=== PATIENT | female | born 1995 | race Native Hawaiian/Other Pacific Islander ===

== ENCOUNTER 2016-07-24 17:56 | Emergency (ER) | payer OTHER ==
[~2016-07-24] VITALS: Ht 167.6 cm; Wt 102.1 kg
[2016-07-24] MEDS ORDERED: WAL-PROFEN200 M1 OR (18:18)
[2016-07-24 19:22] LABS: PLATELET COUNT 333 K/uL (152-353)
[2016-07-24 19:37] LABS: POTASSIUM 3.7 mmol/L (3.6-5.2); SODIUM 140 mmol/L (136-145)
[2016-07-24 20:12] VITALS: BP 112/82; TEMP 99.1
== END 2016-07-24 20:12 | disposition home or self-care (01) ==
LOC: ED 17:56
PROVIDERS: Specialist
DX: R42 Dizziness and giddiness (principal)
CPT/HCPCS: 36415; 36416; 80048; 81000; 81025; 85027; 99283